=== PATIENT | female | born 2000 | race Caucasian/White ===

== ENCOUNTER 2018-07-18 17:15 | Emergency (ER) | payer OTHER ==
[~2018-07-18] VITALS: Ht 167.6 cm; Wt 122.7 kg
[~2018-07-18 17:15] MED LIST: ALLERCLEAR10 M1 PO; AMOXICILLIN/CL875 MG PO; AMOXICILLIN875 MG PO; AMOXIL400 MG/5 M OR; AUGMENTIN875TAB PO; BACTROBAN2 % EX; CLARITIN10 M1 PO; ELIMITE5 % TOP; EPIPEN0.3 MG; EPIPEN0.3 MG IM; FLONASE NASAL50 MCG; KEFLEX500 MG OR; MEDDOSEPAK PO; NAPROSYN500 MG PO; NASONEX50 MCG/AC NAB; NO HOME MEDS; PEPTO BISMOL30 ML OR; TESSALON PER100 MG PO; TOPRAMAX; ZITHROMAX250 MG PO; ZPAK PO; [UNRECOGNIZED DRUG - OTHER]; [UNRECOGNIZED DRUG - REMARK]
[2018-07-18] MEDS ORDERED: TORADOL PO (18:37)
[2018-07-18] MEDS ORDERED: FLEXERIL PO (18:37)
[2018-07-18 18:51] VITALS: BP 149/70
== END 2018-07-18 18:51 | disposition home or self-care (01) | DRG 605 ==
LOC: ED 17:15
DX: S80.01XA Contusion of right knee, initial encounter (principal); S00.83XA Contusion of other part of head, initial encounter; V43.52XA Car driver injured in collision with other type car in traffic accident, initial encounter; Y92.414 Local residential or business street as the place of occurrence of the external cause

== ENCOUNTER 2019-02-07 21:20 | Emergency (ER) | payer SELFPAY ==
[~2019-02-07] VITALS: Ht 167.6 cm; Wt 125.0 kg
[~2019-02-07 21:20] MED LIST changes: +FLEXERIL PO; +TORADOL PO
[2019-02-08 00:33] VITALS: BP 130/68
== END 2019-02-08 00:33 | disposition home or self-care (01) | DRG 601 ==
LOC: ED 21:20
DX: N64.4 Mastodynia (principal)

== ENCOUNTER 2019-05-23 | Emergency (ER) | payer SELFPAY ==
[2019-05-23] MEDS ORDERED: SPRINTEC 2828 DAY PO (21:31)
[2019-05-23] MEDS ORDERED: BACTRIM DS1 TAB PO (21:32)
[2019-05-23] MEDS ORDERED: PREDNISONE50 MG PO (21:37)
== END 2019-05-23 21:45 | disposition home or self-care (01) | DRG 607 ==
DX: L50.9 Urticaria, unspecified (principal)

== ENCOUNTER 2020-07-14 09:53 | Emergency (ER) | payer BC ==
[~2020-07-14] VITALS: Ht 167.6 cm; Wt 136.0 kg
[~2020-07-14 09:53] MED LIST changes: +BACTRIM DS1 TAB PO; +PREDNISONE50 MG PO; +SPRINTEC 2828 DAY PO
[2020-07-14 11:02] LABS: URINE BILIRUBIN - DIPSTICK NEGATIVE (NEGATIVE); URINE BLOOD DIPSTICK SMALL (NEGATIVE); URINE COLOR YELLOW; URINE GLUCOSE - DIPSTICK NEGATIVE (NEGATIVE); URINE KETONE NEGATIVE (NEGATIVE); URINE PROTEIN - DIPSTICK 30 mg/dL (NEG-TRACE); URINE SPECIFIC GRAVITY 1.025; URINE UROBILINOGEN - DIPSTICK 0.2 E.U./dL (0.2)
[2020-07-14 11:14] LABS: URINE LEUK ESTERASE SMALL (NEGATIVE); URINE NITRITE - DIPSTICK POSITIVE (Negative)
[2020-07-14 11:15] LABS: URINE BACTERIA MANY hpf; URINE EPITHELIAL CELLS MODERATE EPI/hpf (0-FEW); URINE RBC 0-2 RBC/hpf (0-5)
[2020-07-14] MEDS ORDERED: ULTRAM50 MG PO (11:33)
[2020-07-14] MEDS ORDERED: BACTRIM DS1 TAB PO (11:33)
[2020-07-14 12:20] VITALS: BP 136/77
== END 2020-07-14 12:10 | disposition home or self-care (01) | DRG 690 ==
LOC: ED 09:53
DX: N39.0 Urinary tract infection, site not specified (principal); B96.20 Unspecified Escherichia coli [E. coli] as the cause of diseases classified elsewhere

== ENCOUNTER 2022-12-22 19:26 | Emergency (ER) | payer BC ==
[~2022-12-22] VITALS: Ht 167.6 cm; Wt 148.0 kg
[2022-12-22] VITALS (10 sets, daily range): BP systolic 139–165; BP diastolic 90–104
[~2022-12-22 19:26] MED LIST changes: +ULTRAM50 MG PO
[2022-12-22] MEDS ORDERED: METFORMIN500 M2 PO (20:00)
[2022-12-22 20:17] LABS: BASO% 0.3 % (0-3); EOS% 0.5 % (0-8); HEMATOCRIT 40.4 % (37.0-47.0); HEMOGLOBIN 13.3 g/dl (12.0-16.0); IMMATURE GRANULOCYTES 0.1 % (0.0-5.0); MEAN CELL VOLUME 86.5 fL CALC (80.0-100.0); MEAN CORPUSCULAR HGB 28.5 pG CALC (26.0-32.0); MEAN CORPUSCULAR HGB CONC 32.9 g/dL CAL (32.0-36.0); MONO% 3.9 % (2-13); NEUT# 6.19 thou/uL (2.00-7.15); NEUT% 58.2 % (42-76); RED BLOOD COUNT 4.67 mill/uL (4.20-5.60); RED CELL DISTRI WIDTH 12.5 % (11.5-15.5)
[2022-12-22 20:33] LABS: ALBUMIN 4.4 g/dL (3.2-5.0); ALKALINE PHOSPHATASE 79 u/l (38-126); ANION GAP 15 (6-22 (CALC)); BUN 13 mg/dL (7-17); BUN/CREATININE RATIO 18 (12-20 (CALC)); CARBON DIOXIDE 23 mmol/l (22-30); CHLORIDE 105 mmol/l (95-108); CREATININE 0.7 mg/dL (0.5-1.0); GFR FOR AFR.AMER. > 60 ML/MIN (>=60 (CALC)); GFR OTHER RACES > 60 ML/MIN (>=60 (CALC)); LIPASE 90 u/l (23-300); POTASSIUM 3.9 mmol/l (3.5-5.1); SGOT/AST 39 u/l (14-36); SODIUM 139 mmol/l (137-146); TOTAL PROTEIN 7.5 g/dL (6.3-8.2)
[2022-12-22 20:35] LABS: BILIRUBIN, TOTAL 0.6 mg/dL (0.02-1.3)
[2022-12-22 21:06] LABS: URINE BILIRUBIN - DIPSTICK Negative (NEGATIVE); URINE BLOOD DIPSTICK Negative (NEGATIVE); URINE GLUCOSE - DIPSTICK Negative (NEGATIVE); URINE KETONE Negative (NEGATIVE); URINE LEUK ESTERASE Negative (NEGATIVE); URINE NITRITE - DIPSTICK Negative (Negative); URINE PH 5.5 (4.5-8.0); URINE PROTEIN - DIPSTICK Negative (NEG-TRACE); URINE UROBILINOGEN - DIPSTICK 0.2 E.U./dL (0.2)
[2022-12-22 21:07] LABS: URINE COLOR Yellow
[2022-12-22] MEDS ORDERED: DICYCLOMINE HCL20 MG PO (22:42)
== END 2022-12-22 23:03 | disposition home or self-care (01) | DRG 392 ==
LOC: ED 19:26
PROVIDERS: Internal Medicine
DX: R10.9 Unspecified abdominal pain (principal); I10 Essential (primary) hypertension; E28.2 Polycystic ovarian syndrome; L50.0 Allergic urticaria; T50.905A Adverse effect of unspecified drugs, medicaments and biological substances, initial encounter; Y92.230 Patient room in hospital as the place of occurrence of the external cause
CPT/HCPCS: Q9967